=== PATIENT | male | born 1985 ===

== ENCOUNTER 2020-05-21 19:44 | Emergency (ER) | payer SELFPAY ==
[~2020-05-21] VITALS: Ht 180.3 cm; Wt 115.9 kg
[2020-05-21 19:45] VITALS: BP 158/102
== END 2020-05-21 21:01 | disposition left against medical advice (07) ==
LOC: EMS 19:44
DX: R06.02 Shortness of breath (principal); Z53.21 Procedure and treatment not carried out due to patient leaving prior to being seen by health care provider